=== PATIENT | male | born 1990 | race Caucasian/White ===

== ENCOUNTER 2018-06-18 09:35 | Emergency (ER) | payer SELFPAY | END 2018-06-18 12:23 | disposition left against medical advice (07) | LOC: FTE 09:35 | DX: S90.32XA Contusion of left foot, initial encounter (principal); V03.10XA Pedestrian on foot injured in collision with car, pick-up truck or van in traffic accident, initial encounter | CPT/HCPCS: 73630; 73630-LT; 99283-25 ==

== ENCOUNTER 2018-06-18 20:14 | Emergency (ER) | payer SELFPAY | END 2018-06-18 23:47 | disposition left against medical advice (07) | LOC: FTE 20:14 | DX: S99.922A Unspecified injury of left foot, initial encounter (principal); Y03.0XXA Assault by being hit or run over by motor vehicle, initial encounter | CPT/HCPCS: 99282 ==

== ENCOUNTER 2018-10-26 22:11 | Emergency (ER) | payer OTHER ==
[2018-10-26] MEDS: KETOROLAC 30 MG INJ IM (23:04)
[2018-10-26 23:14] LABS: ADD MAN DIFF? NO; BASOPHILS % 0.5 % (0.0-2.0); EOSINOPHILS # 0.1 10^3/ul (0.0-0.5); EOSINOPHILS % 0.6 % (0.0-7.0); HEMATOCRIT 39.8 % (42.0-52.0); HEMOGLOBIN 14.1 g/dl (14.0-18.0); LYMPHOCYTES # 1.2 10^3/ul (0.8-2.9); LYMPHOCYTES % 15.6 % (15.0-51.0); MEAN CORPUSCULAR HEMOGLOBIN 30.7 pg (29.0-33.0); MEAN CORPUSCULAR HGB CONC 35.4 g/dl (32.0-37.0); MEAN CORPUSCULAR VOLUME 86.5 fl (82.0-101.0); MEAN PLATELET VOLUME 10.3 fl (7.4-10.4); MONOCYTE # 0.4 10^3/ul (0.3-0.9); MONOCYTES % 4.4 % (0.0-11.0); NEUTROPHIL # 6.2 10^3/ul (1.6-7.5); NEUTROPHILS % 78.8 % (39.0-77.0); PLATELET COUNT 228 10^3/UL (140-415); RED CELL DISTRIBUTION WIDTH 11.7 % (11.5-14.5)
[2018-10-26 23:14] LABS: WHITE BLOOD COUNT 7.9 10^3/ul (4.8-10.8)
[2018-10-26 23:25] LABS: URINE BLOOD (Dip) POC Negative (NEGATIVE); URINE GLUCOSE (Dip) POC Negative (NEGATIVE); URINE KETONES (Dip) POC Negative (NEGATIVE); URINE LEUKOCYTE EST (Dip) POC Negative (NEGATIVE); URINE NITRITE (Dip) POC Negative (NEGATIVE); URINE TOTAL PROTEIN POC Negative (NEGATIVE)
[2018-10-26 23:32] LABS: ALANINE AMINOTRANSFERASE 29 IU/L (13-69); ALBUMIN 4.6 g/dl (3.3-4.9); ALBUMIN/GLOBULIN RATIO 1.35; ALKALINE PHOSPHATASE 92 IU/L (42-121); AMPHETAMINE/METHAMPHETAMINE Negative (NEGATIVE); ANION GAP 14 (5-13); ASPARTATE AMINO TRANSFERASE 29 IU/L (15-46); BARBITURATES Negative (NEGATIVE); BENZODIAZEPINES Negative (NEGATIVE); BILIRUBIN,INDIRECT 0.6 mg/dl (0-1.1); BILIRUBIN,TOTAL 0.6 mg/dl (0.2-1.3); BLOOD UREA NITROGEN 8 mg/dl (7-20); CALCIUM 9.4 mg/dl (8.4-10.2); CANNABINOIDS Positive (NEGATIVE); CARBON DIOXIDE 21 mmol/L (21-31); CHLORIDE 107 mmol/L (97-110); COCAINE Negative (NEGATIVE); CREATININE 0.76 mg/dl (0.61-1.24); Estimated GFR > 60 mL/min (>60); GLUCOSE 103 mg/dl (70-220); LIPASE 115 U/L (23-300); OPIATES Negative (NEGATIVE); POTASSIUM 3.7 mmol/L (3.5-5.1); SODIUM 142 mmol/L (135-144)
== END 2018-10-27 02:32 | disposition home or self-care (01) ==
LOC: E/R 22:11
DX: F10.10 Alcohol abuse, uncomplicated (principal)
CPT/HCPCS: 36415; 80053; 80307; 81003; 83690; 85025; 96372; 99284-25

== ENCOUNTER 2018-12-14 18:55 | Inpatient (IN) | payer MEDICAID, OTHER ==
[2018-12-14 19:19] LABS: ADD MAN DIFF? NO
[2018-12-14] MEDS: ONDANSETRON 4 MG INJ IV ×2 (19:20→21:40)
[2018-12-14] MEDS: morphine 4 MG/ML VIAL IV ×2 (19:20→20:03)
[2018-12-14 19:21] LABS: WHITE BLOOD COUNT 7.9 10^3/ul (4.8-10.8)
[2018-12-14 19:21] LABS: BASOPHIL # 0.1 10^3/ul (0.0-0.1); BASOPHILS % 0.6 % (0.0-2.0); EOSINOPHILS # 0.1 10^3/ul (0.0-0.5); EOSINOPHILS % 0.8 % (0.0-7.0); HEMATOCRIT 40.3 % (42.0-52.0); HEMOGLOBIN 14.2 g/dl (14.0-18.0); LYMPHOCYTES # 1.5 10^3/ul (0.8-2.9); LYMPHOCYTES % 18.8 % (15.0-51.0); MEAN CORPUSCULAR HEMOGLOBIN 30.7 pg (29.0-33.0); MEAN CORPUSCULAR HGB CONC 35.2 g/dl (32.0-37.0); MEAN CORPUSCULAR VOLUME 87.2 fl (82.0-101.0); MEAN PLATELET VOLUME 9.9 fl (7.4-10.4); MONOCYTE # 0.5 10^3/ul (0.3-0.9); MONOCYTES % 6.2 % (0.0-11.0); NEUTROPHIL # 5.8 10^3/ul (1.6-7.5); NEUTROPHILS % 73.2 % (39.0-77.0); PLATELET COUNT 202 10^3/UL (140-415); RED BLOOD COUNT 4.62 10^6/ul (4.70-6.10); RED CELL DISTRIBUTION WIDTH 11.9 % (11.5-14.5)
[2018-12-14 19:41] LABS: INR 0.87; PROTIME 11.9 Sec (11.9-14.9); PT RATIO 0.9
[2018-12-14 19:42] LABS: PARTIAL THROMBOPLASTIN TIME 25.5 Sec (23.0-35.0)
[2018-12-14 19:43] LABS: ANION GAP 12 (5-13); BLOOD UREA NITROGEN 10 mg/dl (7-20); CALCIUM 9.4 mg/dl (8.4-10.2); CARBON DIOXIDE 25 mmol/L (21-31); CHLORIDE 105 mmol/L (97-110); CREATININE 1.01 mg/dl (0.61-1.24); Estimated GFR > 60 mL/min (>60); GLUCOSE 91 mg/dl (70-220); POTASSIUM 3.5 mmol/L (3.5-5.1); SODIUM 142 mmol/L (135-144)
[2018-12-14] MEDS: HYDROmorphONE 0.5 MG/0.5 ML SYG IV ×2 (20:43→21:57)
[2018-12-14] MEDS: KETAMINE HCL (50 MG/ML) 1ml syringe IV (21:46)
[2018-12-14 22:55] LABS: AMPHETAMINE/METHAMPHETAMINE Negative (NEGATIVE); BARBITURATES Negative (NEGATIVE); BENZODIAZEPINES Negative (NEGATIVE); CANNABINOIDS Positive (NEGATIVE); COCAINE Negative (NEGATIVE)
[2018-12-14 22:59] LABS: OPIATES Positive (NEGATIVE)
[2018-12-15] MEDS ORDERED: ONDANSETRON 4 MG INJ IV (00:30)
[2018-12-15] MEDS ORDERED: ACETAMINOPHEN 325 MG TAB PO (00:30)
[2018-12-15] MEDS: HYDROmorphONE 0.5 MG/0.5 ML SYG IV (00:36)
[2018-12-15] MEDS: morphine 2 MG INJ IV ×2 (02:25→06:25)
[2018-12-15] MEDS ORDERED: HYDROCODONE/APAP (5/325) TAB PO (02:30)
[2018-12-15] MEDS ORDERED: NACL 0.9% 3 ML SYG IV (02:30)
[2018-12-15] MEDS: HYDROCODONE/APAP (5/325) TAB PO ×2 (03:22→09:33)
[2018-12-15 06:23] LABS: ADD MAN DIFF? NO
[2018-12-15 06:31] LABS: BASOPHILS % 0.4 % (0.0-2.0); EOSINOPHILS % 0.4 % (0.0-7.0); HEMATOCRIT 41.2 % (42.0-52.0); HEMOGLOBIN 13.9 g/dl (14.0-18.0); LYMPHOCYTES # 1.4 10^3/ul (0.8-2.9); LYMPHOCYTES % 18.4 % (15.0-51.0); MEAN CORPUSCULAR HEMOGLOBIN 30.5 pg (29.0-33.0); MEAN CORPUSCULAR HGB CONC 33.7 g/dl (32.0-37.0); MEAN CORPUSCULAR VOLUME 90.4 fl (82.0-101.0); MEAN PLATELET VOLUME 10.6 fl (7.4-10.4); MONOCYTE # 0.8 10^3/ul (0.3-0.9); MONOCYTES % 10.6 % (0.0-11.0); NEUTROPHIL # 5.2 10^3/ul (1.6-7.5); NEUTROPHILS % 69.8 % (39.0-77.0); PLATELET COUNT 190 10^3/UL (140-415); RED BLOOD COUNT 4.56 10^6/ul (4.70-6.10); RED CELL DISTRIBUTION WIDTH 12.3 % (11.5-14.5)
[2018-12-15 06:31] LABS: WHITE BLOOD COUNT 7.4 10^3/ul (4.8-10.8)
[2018-12-15 06:59] LABS: ANION GAP 7 (5-13); BLOOD UREA NITROGEN 9 mg/dl (7-20); CALCIUM 9.4 mg/dl (8.4-10.2); CARBON DIOXIDE 28 mmol/L (21-31); CHLORIDE 105 mmol/L (97-110); CREATININE 0.94 mg/dl (0.61-1.24); Estimated GFR > 60 mL/min (>60); GLUCOSE 92 mg/dl (70-220); PHOSPHORUS 4.7 mg/dl (2.5-4.9); POTASSIUM 4.4 mmol/L (3.5-5.1); SODIUM 140 mmol/L (135-144)
[2018-12-15 07:00] LABS: ALANINE AMINOTRANSFERASE 39 IU/L (13-69); ALBUMIN 4.4 g/dl (3.3-4.9); ALBUMIN/GLOBULIN RATIO 1.51; ALKALINE PHOSPHATASE 72 IU/L (42-121); ASPARTATE AMINO TRANSFERASE 32 IU/L (15-46); BILIRUBIN,INDIRECT 1.3 mg/dl (0-1.1); BILIRUBIN,TOTAL 1.3 mg/dl (0.2-1.3); MAGNESIUM 2.1 mg/dl (1.7-2.5); TOTAL PROTEIN 7.3 g/dl (6.1-8.1)
[2018-12-15] MEDS: HYDROmorphONE 2 MG/ML SYG IV (07:45)
[2018-12-15] MEDS: ONDANSETRON 4 MG INJ IV ×2 (08:41→15:11)
[2018-12-15] MEDS: HEPARIN 5,000 UNIT/1 ML VIAL SC ×2 (09:34→20:27)
[2018-12-15] MEDS: HYDROmorphONE 1 MG/ML SYG IV ×3 (11:01→19:05)
[2018-12-15] MEDS: PROCHLORPERAZINE 5 MG TAB PO (11:02)
[2018-12-15] MEDS: METHOCARBAMOL 500 MG TAB PO ×2 (12:34→20:13)
[2018-12-15] MEDS ORDERED: LORAZEPAM 2 MG INJ IV (13:30)
[2018-12-15] MEDS: KETOROLAC 30 MG INJ IV ×2 (13:34→21:01)
[2018-12-15] MEDS: MULTIVITAMINS 10 ML, THIAMINE 100 MG, FOLIC ACID 1 MG in SOD CHLORIDE 0.9% 1,000 ML IVPB (15:04)
[2018-12-15] MEDS: CHLORDIAZEPOXIDE 25 MG CAP PO (20:13)
[2018-12-16 05:23] LABS: ADD MAN DIFF? NO
[2018-12-16 05:36] LABS: WHITE BLOOD COUNT 5.4 10^3/ul (4.8-10.8)
[2018-12-16 05:36] LABS: BASOPHILS % 0.6 % (0.0-2.0); EOSINOPHILS # 0.1 10^3/ul (0.0-0.5); EOSINOPHILS % 1.5 % (0.0-7.0); HEMATOCRIT 42.4 % (42.0-52.0); HEMOGLOBIN 14.2 g/dl (14.0-18.0); LYMPHOCYTES # 1.2 10^3/ul (0.8-2.9); MEAN CORPUSCULAR HEMOGLOBIN 30.3 pg (29.0-33.0); MEAN CORPUSCULAR HGB CONC 33.5 g/dl (32.0-37.0); MEAN CORPUSCULAR VOLUME 90.4 fl (82.0-101.0); MEAN PLATELET VOLUME 10.6 fl (7.4-10.4); MONOCYTE # 0.7 10^3/ul (0.3-0.9); MONOCYTES % 12.1 % (0.0-11.0); NEUTROPHIL # 3.4 10^3/ul (1.6-7.5); NEUTROPHILS % 63.4 % (39.0-77.0); PLATELET COUNT 186 10^3/UL (140-415); RED BLOOD COUNT 4.69 10^6/ul (4.70-6.10); RED CELL DISTRIBUTION WIDTH 12.3 % (11.5-14.5)
[2018-12-16] MEDS: HYDROmorphONE 1 MG/ML SYG IV ×4 (06:04→20:52)
[2018-12-16 06:30] LABS: ANION GAP 8 (5-13); BLOOD UREA NITROGEN 10 mg/dl (7-20); CALCIUM 9.4 mg/dl (8.4-10.2); CARBON DIOXIDE 27 mmol/L (21-31); CHLORIDE 103 mmol/L (97-110); CREATININE 0.89 mg/dl (0.61-1.24); Estimated GFR > 60 mL/min (>60); GLUCOSE 89 mg/dl (70-220); MAGNESIUM 2.1 mg/dl (1.7-2.5); PHOSPHORUS 4.6 mg/dl (2.5-4.9); POTASSIUM 3.9 mmol/L (3.5-5.1); SODIUM 138 mmol/L (135-144)
[2018-12-16] MEDS: KETOROLAC 30 MG INJ IV ×2 (06:52→18:52)
[2018-12-16] MEDS ORDERED: MIDAZOLAM 1 MG/ML 2 ML INJ (07:47)
[2018-12-16] MEDS ORDERED: ROPIVACAINE 0.5 % 30 ML VIAL (08:01)
[2018-12-16] MEDS: POLYMYXIN/BACITRACIN 1L IRRIG (08:50)
[2018-12-16] MEDS: CHLORDIAZEPOXIDE 25 MG CAP PO ×3 (09:00→20:53)
[2018-12-16] MEDS: METHOCARBAMOL 500 MG TAB PO ×3 (09:00→20:53)
[2018-12-16] MEDS: HEPARIN 5,000 UNIT/1 ML VIAL SC ×2 (09:00→20:54)
[2018-12-16] MEDS ORDERED: PROPOFOL 20 ML (10:10)
[2018-12-16] MEDS ORDERED: LIDOCAINE 2% (SDV) 5 ML INJ (10:10)
[2018-12-16] MEDS ORDERED: CEFAZOLIN 1 GM INJ (10:10)
[2018-12-16] MEDS ORDERED: ROCURONIUM 50 MG INJ (10:10)
[2018-12-16] MEDS ORDERED: ONDANSETRON 4 MG INJ (10:11)
[2018-12-16] MEDS ORDERED: METOCLOPRAMIDE 10 MG INJ IV (10:30)
[2018-12-16] MEDS ORDERED: HYDROmorphONE 1 MG/5 ML IV SYRINGE IV (10:30)
[2018-12-16] MEDS ORDERED: FENTAnyl 50 MCG/ML VIAL IV (10:30)
[2018-12-16] MEDS ORDERED: NALOXONE (0.4 MG/ML) INJ IV (10:30)
[2018-12-16] MEDS ORDERED: DIPHENHYDRAMINE 50 MG INJ IV (10:30)
[2018-12-16] MEDS: HYDROmorphONE 1 MG/5 ML IV SYRINGE IV ×2 (10:43→11:10)
[2018-12-16] MEDS: MEPERIDINE 25 MG INJ IV (11:31)
[2018-12-16] MEDS: ONDANSETRON 4 MG INJ IV ×2 (12:01→16:53)
[2018-12-16] MEDS: MULTIVITAMINS 10 ML, THIAMINE 100 MG, FOLIC ACID 1 MG in SOD CHLORIDE 0.9% 1,000 ML IVPB (12:02)
[2018-12-16] MEDS: CEFAZOLIN 1 GM/50 ML (PMX) 50 ML IVPB ×2 (13:41→21:00)
[2018-12-16] MEDS ORDERED: HYDROCODONE/APAP (5/325) TAB PO (14:00)
[2018-12-17] MEDS: HYDROmorphONE 1 MG/ML SYG IV ×7 (00:52→22:49)
[2018-12-17] MEDS: KETOROLAC 30 MG INJ IV ×4 (00:52→15:03)
[2018-12-17] MEDS: CEFAZOLIN 1 GM/50 ML (PMX) 50 ML IVPB (05:01)
[2018-12-17 07:22] LABS: ADD MAN DIFF? NO
[2018-12-17 07:29] LABS: WHITE BLOOD COUNT 4.6 10^3/ul (4.8-10.8)
[2018-12-17 07:29] LABS: BASOPHILS % 0.4 % (0.0-2.0); EOSINOPHILS # 0.1 10^3/ul (0.0-0.5); HEMATOCRIT 34.4 % (42.0-52.0); HEMOGLOBIN 11.7 g/dl (14.0-18.0); LYMPHOCYTES # 1.1 10^3/ul (0.8-2.9); LYMPHOCYTES % 24.1 % (15.0-51.0); MEAN CORPUSCULAR HEMOGLOBIN 31.2 pg (29.0-33.0); MEAN CORPUSCULAR VOLUME 91.7 fl (82.0-101.0); MEAN PLATELET VOLUME 10.6 fl (7.4-10.4); MONOCYTE # 0.5 10^3/ul (0.3-0.9); MONOCYTES % 9.8 % (0.0-11.0); NEUTROPHIL # 2.9 10^3/ul (1.6-7.5); NEUTROPHILS % 62.5 % (39.0-77.0); PLATELET COUNT 167 10^3/UL (140-415); RED BLOOD COUNT 3.75 10^6/ul (4.70-6.10); RED CELL DISTRIBUTION WIDTH 11.9 % (11.5-14.5)
[2018-12-17 07:55] LABS: ANION GAP 4 (5-13); BLOOD UREA NITROGEN 10 mg/dl (7-20); CALCIUM 8.4 mg/dl (8.4-10.2); CARBON DIOXIDE 29 mmol/L (21-31); CHLORIDE 107 mmol/L (97-110); CREATININE 0.95 mg/dl (0.61-1.24); Estimated GFR > 60 mL/min (>60); GLUCOSE 102 mg/dl (70-220); POTASSIUM 4.1 mmol/L (3.5-5.1); SODIUM 140 mmol/L (135-144)
[2018-12-17] MEDS: CHLORDIAZEPOXIDE 25 MG CAP PO ×3 (08:12→20:40)
[2018-12-17] MEDS: HYDROCODONE/APAP (5/325) TAB PO ×2 (08:12→20:39)
[2018-12-17] MEDS: METHOCARBAMOL 500 MG TAB PO ×3 (08:12→20:40)
[2018-12-17] MEDS: HEPARIN 5,000 UNIT/1 ML VIAL SC (08:13)
[2018-12-17] MEDS: MULTIVITAMINS 10 ML, THIAMINE 100 MG, FOLIC ACID 1 MG in SOD CHLORIDE 0.9% 1,000 ML IVPB (09:19)
[2018-12-17] MEDS: ASCORBIC ACID 500 MG TAB PO (10:23)
[2018-12-18] MEDS: HYDROmorphONE 1 MG/ML SYG IV ×4 (00:47→09:34)
[2018-12-18] MEDS: KETOROLAC 30 MG INJ IV (04:01)
[2018-12-18 07:22] LABS: ADD MAN DIFF? NO
[2018-12-18 07:35] LABS: BASOPHILS % 0.4 % (0.0-2.0); EOSINOPHILS # 0.1 10^3/ul (0.0-0.5); HEMATOCRIT 35.6 % (42.0-52.0); HEMOGLOBIN 12.2 g/dl (14.0-18.0); MEAN CORPUSCULAR HEMOGLOBIN 31.3 pg (29.0-33.0); MEAN CORPUSCULAR HGB CONC 34.3 g/dl (32.0-37.0); MEAN CORPUSCULAR VOLUME 91.3 fl (82.0-101.0); MEAN PLATELET VOLUME 10.7 fl (7.4-10.4); MONOCYTE # 0.5 10^3/ul (0.3-0.9); MONOCYTES % 11.5 % (0.0-11.0); NEUTROPHIL # 2.8 10^3/ul (1.6-7.5); NEUTROPHILS % 62.7 % (39.0-77.0); PLATELET COUNT 178 10^3/UL (140-415)
[2018-12-18 07:35] LABS: WHITE BLOOD COUNT 4.5 10^3/ul (4.8-10.8)
[2018-12-18 07:53] LABS: ANION GAP 7 (5-13); BLOOD UREA NITROGEN 12 mg/dl (7-20); CALCIUM 8.8 mg/dl (8.4-10.2); CARBON DIOXIDE 28 mmol/L (21-31); CHLORIDE 106 mmol/L (97-110); CREATININE 0.99 mg/dl (0.61-1.24); Estimated GFR > 60 mL/min (>60); GLUCOSE 96 mg/dl (70-220); POTASSIUM 4.1 mmol/L (3.5-5.1); SODIUM 141 mmol/L (135-144)
[2018-12-18 07:54] LABS: PHOSPHORUS 4.2 mg/dl (2.5-4.9)
[2018-12-18 07:54] LABS: MAGNESIUM 1.7 mg/dl (1.7-2.5)
[2018-12-18] MEDS: HYDROCODONE/APAP (5/325) TAB PO (08:33)
[2018-12-18] MEDS: CHLORDIAZEPOXIDE 25 MG CAP PO ×3 (08:56→20:32)
[2018-12-18] MEDS: METHOCARBAMOL 500 MG TAB PO (08:56)
[2018-12-18] MEDS: ASCORBIC ACID 500 MG TAB PO (08:56)
[2018-12-18] MEDS: THIAMINE 100 MG TAB PO (08:57)
[2018-12-18] MEDS: ENOXAPARIN 40 MG/0.4 ML SYG SC (08:57)
[2018-12-18] MEDS: MULTIVITAMINS 10 ML, THIAMINE 100 MG, FOLIC ACID 1 MG in SOD CHLORIDE 0.9% 1,000 ML IVPB (09:29)
[2018-12-18] MEDS: oxyCODONE (CR) 10 MG TAB [oxyCONTIN] PO ×2 (11:01→20:32)
[2018-12-18] MEDS: morphine LIQ (20 MG/ML PO SYG) SL ×3 (14:19→21:14)
[2018-12-18] MEDS: CEFAZOLIN 1 GM/50 ML (PMX) 50 ML IVPB (20:32)
[2018-12-19] MEDS: morphine 2 MG INJ IV (00:13)
[2018-12-19] MEDS: morphine LIQ (20 MG/ML PO SYG) SL ×4 (03:56→19:09)
[2018-12-19] MEDS: THIAMINE 100 MG TAB PO (08:56)
[2018-12-19] MEDS: ASCORBIC ACID 500 MG TAB PO (08:56)
[2018-12-19] MEDS: ENOXAPARIN 40 MG/0.4 ML SYG SC ×3 (08:56→12:24)
[2018-12-19] MEDS: CHLORDIAZEPOXIDE 25 MG CAP PO (08:56)
[2018-12-19] MEDS: oxyCODONE (CR) 10 MG TAB [oxyCONTIN] PO ×2 (08:57→21:11)
[2018-12-19] MEDS: CEFAZOLIN 1 GM/50 ML (PMX) 50 ML IVPB ×2 (08:57→21:11)
[2018-12-19] MEDS: CHLORDIAZEPOXIDE 5 MG CAP PO ×2 (12:12→21:11)
[2018-12-19] MEDS: LORAZEPAM 2 MG INJ IV (12:20)
[2018-12-20] MEDS: morphine LIQ (20 MG/ML PO SYG) SL ×6 (02:45→22:31)
[2018-12-20] MEDS: ONDANSETRON 4 MG INJ IV (02:48)
[2018-12-20] MEDS: DOCUSATE SODIUM 100 MG CAP PO ×2 (03:22→21:08)
[2018-12-20] MEDS: POLYETHYLENE GLYCOL 17 GM PACKET PO (03:22)
[2018-12-20] MEDS: ENOXAPARIN 40 MG/0.4 ML SYG SC (09:00)
[2018-12-20] MEDS: THIAMINE 100 MG TAB PO (09:03)
[2018-12-20] MEDS: CEFAZOLIN 1 GM/50 ML (PMX) 50 ML IVPB (09:03)
[2018-12-20] MEDS: oxyCODONE (CR) 10 MG TAB [oxyCONTIN] PO ×2 (09:04→21:08)
[2018-12-20] MEDS: CHLORDIAZEPOXIDE 5 MG CAP PO (09:04)
[2018-12-20] MEDS: ASCORBIC ACID 500 MG TAB PO (09:04)
[2018-12-20] MEDS ORDERED: BUPIVACAINE 0.5% (MPF) 10 ML VIAL INJ (13:00)
[2018-12-20] MEDS: CEPHALEXIN 500 MG CAP PO ×2 (15:00→22:26)
[2018-12-20 16:47] LABS: AMPHETAMINE/METHAMPHETAMINE Negative (NEGATIVE); BARBITURATES Negative (NEGATIVE); CANNABINOIDS Positive (NEGATIVE); COCAINE Negative (NEGATIVE)
[2018-12-20 16:48] LABS: BENZODIAZEPINES Positive (NEGATIVE); OPIATES Positive (NEGATIVE)
[2018-12-21] MEDS: morphine LIQ (20 MG/ML PO SYG) SL ×3 (01:37→08:29)
[2018-12-21] MEDS: CEPHALEXIN 500 MG CAP PO ×3 (05:05→22:16)
[2018-12-21] MEDS: THIAMINE 100 MG TAB PO (08:29)
[2018-12-21] MEDS: ASCORBIC ACID 500 MG TAB PO (08:29)
[2018-12-21] MEDS: DOCUSATE SODIUM 100 MG CAP PO ×2 (08:29→21:12)
[2018-12-21] MEDS: POLYETHYLENE GLYCOL 17 GM PACKET PO (08:29)
[2018-12-21] MEDS: oxyCODONE (CR) 10 MG TAB [oxyCONTIN] PO ×2 (08:29→21:13)
[2018-12-21] MEDS: ENOXAPARIN 40 MG/0.4 ML SYG SC (08:31)
[2018-12-21] MEDS: KETOROLAC 30 MG INJ IV ×2 (14:13→20:21)
[2018-12-21] MEDS: MAGNESIUM CITRATE 300 ML BTL PO (17:47)
[2018-12-22] MEDS: KETOROLAC 30 MG INJ IV ×3 (03:25→18:37)
[2018-12-22] MEDS: CEPHALEXIN 500 MG CAP PO ×3 (06:44→22:02)
[2018-12-22] MEDS: POLYETHYLENE GLYCOL 17 GM PACKET PO (09:00)
[2018-12-22] MEDS: THIAMINE 100 MG TAB PO (09:48)
[2018-12-22] MEDS: ASCORBIC ACID 500 MG TAB PO (09:48)
[2018-12-22] MEDS: oxyCODONE (CR) 10 MG TAB [oxyCONTIN] PO ×2 (09:48→20:25)
[2018-12-22] MEDS: DOCUSATE SODIUM 100 MG CAP PO ×2 (09:48→20:25)
[2018-12-22] MEDS: ENOXAPARIN 40 MG/0.4 ML SYG SC (09:55)
[2018-12-23] MEDS: KETOROLAC 30 MG INJ IV ×3 (00:38→15:28)
[2018-12-23] MEDS: CEPHALEXIN 500 MG CAP PO ×3 (06:11→21:13)
[2018-12-23] MEDS: POLYETHYLENE GLYCOL 17 GM PACKET PO (09:00)
[2018-12-23] MEDS: DOCUSATE SODIUM 100 MG CAP PO ×2 (09:27→21:13)
[2018-12-23] MEDS: THIAMINE 100 MG TAB PO (09:27)
[2018-12-23] MEDS: oxyCODONE (CR) 10 MG TAB [oxyCONTIN] PO ×2 (09:27→21:13)
[2018-12-23] MEDS: ASCORBIC ACID 500 MG TAB PO (09:27)
[2018-12-23] MEDS: ENOXAPARIN 40 MG/0.4 ML SYG SC (09:29)
[2018-12-24] MEDS: KETOROLAC 30 MG INJ IV (01:30)
[2018-12-24] MEDS: CEPHALEXIN 500 MG CAP PO ×2 (06:04→15:25)
[2018-12-24] MEDS: POLYETHYLENE GLYCOL 17 GM PACKET PO (08:22)
[2018-12-24] MEDS: ASCORBIC ACID 500 MG TAB PO (08:22)
[2018-12-24] MEDS: THIAMINE 100 MG TAB PO (08:22)
[2018-12-24] MEDS: DOCUSATE SODIUM 100 MG CAP PO (08:22)
[2018-12-24] MEDS: ENOXAPARIN 40 MG/0.4 ML SYG SC (08:23)
[2018-12-24] MEDS: oxyCODONE (CR) 10 MG TAB [oxyCONTIN] PO (08:23)
[2018-12-24] MEDS: ACETAMINOPHEN 325 MG TAB PO (15:26)
== END 2018-12-24 17:12 | disposition home health service (06) | DRG 505 ==
LOC: E/R 18:55 → PP2 12-15 00:30
PROC: 0QSM35Z Reposition Left Tarsal with External Fixation Device, Percutaneous Approach (ICD-10-PCS; principal; 2018-12-16 07:30)
DX: S92.102A Unspecified fracture of left talus, initial encounter for closed fracture (principal); F10.229 Alcohol dependence with intoxication, unspecified; W10.9XXA Fall (on) (from) unspecified stairs and steps, initial encounter
CPT/HCPCS: 36415; 70450; 71045; 72170; 73080-RT; 73110-RT; 73130-RT; 73590; 73600-LT; 73610; 73630-LT; 73700; 80048; 80053; 80307; 83735; 84100; 85025; 85610; 85730; 87040-91; 93970; 96374; 96375; 96376; 97110; 97116; 97162; 97167; 97530; 97535; 99285-25

== ENCOUNTER 2018-12-31 20:43 | Emergency (ER) | payer MEDICAID ==
[2018-12-31] MEDS: HYDROCODONE/APAP (10/325) TAB PO (21:31)
== END 2018-12-31 22:18 | disposition home or self-care (01) ==
LOC: FTE 20:43
DX: S99.912D Unspecified injury of left ankle, subsequent encounter (principal); X58.XXXD Exposure to other specified factors, subsequent encounter
CPT/HCPCS: 99283; Z7502

== ENCOUNTER 2019-02-05 13:10 | Emergency (ER) | payer MEDICAID | END 2019-02-05 16:55 | disposition left against medical advice (07) | LOC: FTE 13:10 | DX: S89.92XA Unspecified injury of left lower leg, initial encounter (principal); W18.2XXA Fall in (into) shower or empty bathtub, initial encounter; Y92.9 Unspecified place or not applicable | CPT/HCPCS: 73590; 73610; 73630-LT; 99283-25 ==